=== PATIENT | female | born 1960 | race Caucasian/White ===

== ENCOUNTER 2017-08-22 10:31 | Outpatient (AMBR) | payer MEDICAID, SELFPAY ==
--- NOTE | 2017-08-22 12:02 | PTNOTE_ITS ---
PT OP Progress/Discharge Note Date of Service: August 22, 2017 Progress Note/DC Note Progress Note/Discharge Note: Progress Note Patient Information Visit Reasons: RIGHT SHOULDER Medical Diagnosis: M75.10 Treatment Dx #1: Right Shoulder Mobility Deficits Treatment Dx #2: Right Shoulder Weakness Service Continue Service or Discharge: Continue Service Certification Date Certification Dates: 08/22/17 to 11/22/17 Status Subjective: Pt mention about 2 weeks ago she received a shoulder manipulation felt that it help a little. Pt has been able to drive, take off her bra, reach to side, and start light swimming. Pt still has difficulty with overhead motions , lifting, cooking, and cleaning. Objective: Right Shoulder AROM Flexion: 60 deg Abduction: 55 deg ER and IR: NT Right Shoulder PROM Flexion: 150 deg Abduction: 150 deg ER and IR: NT Right Shoulder MMTs: grossly 3-/5 where Assessment: Pt's right shoulder PROM has improved after the shoulder manipulation, however, Pt continues to demonstrate limited AROM due to rotator cuff weakness and pain. Due to Pt's limited shoulder mobility Pt continues to have difficulty with overhead motions, lifting, cooking, and cleaning. Pt has not met set goals yet and will continue to benefit from additional physical therapy, thank you for your referrals. Plan: Continue with POC/PT and add 12 sessions (2 x wk for 6 wks) Office Procedures PT Procedures PT Date of Service: 08/22/17 Therapeutic Exercise 30 minutes: Yes
== END 2017-09-16 23:59 | disposition home or self-care (01) ==
PROVIDERS: Visit Provider Orthopaedic Surgery
DX: M25.511 Pain in right shoulder (principal); M62.81 Muscle weakness (generalized)
CPT/HCPCS: 97110

== ENCOUNTER → 2024-02-07 | Outpatient (CLI) | payer MEDICAID, SELFPAY ==
--- NOTE | 2024-02-07 09:45 | XR_ITS ---
Examination: Screening digital mammography, bilateral Computer aided detection 3-D breast Tomosynthesis, bilateral Date and time of exam: February 07, 2024 0922 hours Compared to mammograms dating to September 19, 2019 Indication: Screening Technique: Nonmagnified MLO, CC views of the breasts to been obtained, reconstructed from 3-D Tomosynthesis images. R2 computer aided detection program utilized for evaluation of suspicious masses and/or abnormal calcifications. 3-D Tomosynthesis images obtained. Findings: Scattered areas of fibroglandular density. Benign calcifications. No interval suspicious masses Impression: BI-RADS category II: Benign Findings. Recommend 1 year follow-up mammogram.
== END | disposition home or self-care (01) ==
PROVIDERS: Referring Provider Nurse Practitioner Family; Visit Provider Nurse Practitioner Family
DX: Z12.31 Encounter for screening mammogram for malignant neoplasm of breast (principal); R92.323 Mammographic fibroglandular density, bilateral breasts; R92.1 Mammographic calcification found on diagnostic imaging of breast
CPT/HCPCS: 77063; 77067

== ENCOUNTER 2024-03-18 09:30 | Outpatient (RCR) | payer MEDICAID, SELFPAY ==
--- NOTE | 2024-03-04 09:42 | PT.OIERPT ---
PT OP Initial Eval Patient Information Outpatient Physical Therapy Treatment Date: 03/04/24 Visit Reasons: right hip bursitis Medical Diagnosis: Bilateral Trochanteric Bursitis Treatment Dx #1: Bilateral Hip Pain Start of Care: 03/04/24 Date of Onset: 6 months ago Smoking Status Smoking Status: Current every day smoker (yes) Cessation Counseling Provided: JIMMY was advised that quitting smoking is the single most important factor to protect the health of themselves and their family. Discussed the benefits of quitting smoking with patient. Encouraged patient to quit smoking and provided Cessation assistance materials and resources. Tobacco Use: Cigarette Years smoked: 20 Are you interested in quitting?: No Would you like additional Smoking Cessation Counseling?: No Initial Assessment Subjective: Pt is a 63 y/o female reports of bilateral hip pain L>R started ~ 6 months ago. Pt mentioned the shots in her hips has been helping. Pt has limitation with standing, chores, self care, walking, stairs, and performing recreational activities. Objective: Hip AROM: all motions are WFL Hip MMTs: grossly 3+/5 Special Test (+) denise's Muscle Length: Hs tightness Palpation: TTP bilateral greater trochanter Assessment: Pt demonstrate bilateral hip pain L>R consistent with trochanter bursitis leading to difficulty with ADLs. Pt will benefit from physical therapy to increase mobility, strength, and flexibility. Short Term and Digital Media Buyer Goals 1) Increase hip AROM WNL in 6 wks to be able to perform chores 2) Decrease hip pain to 2/10 in 6 wks to be able to walk more than 30 mins 3) Increase hip MMTs grossly to 4-/5 in 6 wks to be able to perform recreational activities 4) Indep with HEP Treatment Plan 1) Manual Therapy 2) Therapeutic Activities 3) Therapeutic Exercises 4) Modalities (ice, heat) 5) Balance Training Frequency and Duration: 2 x wk for 6 wks Certification Dates: 03/04/24 to 06/02/24 Procedure Charges OP PT Eval Mod Complex 30 minutes: Yes
--- NOTE | 2024-03-06 10:01 | PT.ODAYNRPT ---
PT Outpatient Daily Note OP Daily Note Outpatient Physical Therapy Treatment Date: 03/06/24 Visit Reasons: right hip bursitis Subjective: No new complalints. Objective: Please see flow sheet for ther ex list. Assessment: Interventions completed with minimal pain and muscle fatigue. Plan: Continue with pOC. Length of Time (minutes) of Treatment: 30 Minutes Procedure Charges Therapeutic Exercise 30 minutes: Yes
--- NOTE | 2024-03-18 08:58 | PT.ODAYNRPT ---
PT Outpatient Daily Note OP Daily Note Outpatient Physical Therapy Treatment Date: 03/18/24 Visit Reasons: right hip bursitis Subjective: Pt's hips are okay. No new concerns to report. Objective: Please see flow chart for list of ther ex performed Assessment: tolerate exercises with minimal pain Plan: Continue with PT Length of Time (minutes) of Treatment: 30 Minutes Procedure Charges Therapeutic Exercise 30 minutes: Yes
== END 2024-03-19 23:59 | disposition home or self-care (01) ==
LOC: CPTX 09:30
PROVIDERS: PCP Orthopaedic Surgery Adult Reconstructive Orthopaedic Surgery; Referring Provider Orthopaedic Surgery Adult Reconstructive Orthopaedic Surgery; Visit Provider Orthopaedic Surgery Adult Reconstructive Orthopaedic Surgery
DX: M25.552 Pain in left hip (principal); M25.551 Pain in right hip; R26.2 Difficulty in walking, not elsewhere classified
CPT/HCPCS: 97110; 97162

== ENCOUNTER 2024-03-26 09:00 | Outpatient (RCR) | payer MEDICAID, SELFPAY ==
--- NOTE | 2024-03-22 09:19 | PT.ODAYNRPT ---
PT Outpatient Daily Note OP Daily Note Outpatient Physical Therapy Treatment Date: 03/22/24 Visit Reasons: Left hip pain Subjective: Pt's hips are better. Pt wants to continue physical therapy and extend authorization Objective: Please see flow chart for list of ther ex performed Assessment: progress patient to more closed chain exercises with good tolerance and less pain reported Plan: Continue with PT Length of Time (minutes) of Treatment: 30 Minutes Procedure Charges Therapeutic Exercise 30 minutes: Yes
--- NOTE | 2024-03-26 10:52 | PTNOTE_ITS ---
PT OP Progress/Discharge Note Date of Service: 03/26/24 Progress Note/DC Note Progress Note/Discharge Note: DC Note Patient Information Visit Reasons: Left hip pain Medical Diagnosis: Bilateral Trochanteric Bursitis Treatment Dx #1: Bilateral Hip Pain Service Discharge Date: 03/26/24 Status Subjective: Pt's hips are good and has been able to resume ADLs, ambulate, and perform recreational activities with minimal limitation. At this time Pt feels comfortable being release from care with exercises to continue at home. Objective: Hip AROM: all motions are WNL Hip MMTs: grossly 4-/5 Muscle Length: normal Hs length Assessment: Pt demonstrate functional hip mobility and strength allowing her to resume ADLs, ambulate, and perform recreational activities with minimal limitation. Pt has met set goals in therapy and will no longer benefit from physical therapy. Pt was instructed on HEP last session and educated to continue exercises to ma intain overall mobility. Pt performed all exercises safely, thank you for your referrals. Plan: D/C home with HEP and follow up with MD QUEZADA Procedure Charges Therapeutic Exercise 30 minutes: Yes
== END 2024-04-19 23:59 | disposition home or self-care (01) ==
LOC: CPTX 09:00
PROVIDERS: PCP Orthopaedic Surgery Adult Reconstructive Orthopaedic Surgery; Referring Provider Orthopaedic Surgery Adult Reconstructive Orthopaedic Surgery; Visit Provider Orthopaedic Surgery Adult Reconstructive Orthopaedic Surgery
DX: M25.552 Pain in left hip (principal); M25.551 Pain in right hip; R26.2 Difficulty in walking, not elsewhere classified
CPT/HCPCS: 97110

== ENCOUNTER 2024-03-26 15:13 | Emergency (ER) | payer MEDICAID, SELFPAY ==
[2024-03-26 15:24] VITALS: BP 162/96; PULSE 98; RESP 18; TEMP 36.5; O2SAT 96; BMI 32.4
--- NOTE | 2024-03-26 15:27 | XR_ITS ---
Examination: CT abdomen and pelvis without contrast. Coronal 3-D reconstructions. Sagittal 2-D reconstructions. Date and time of exam:March 26, 2024 1623 hours Comparison January 11, 2023 INDICATIONS: Abdominal pain flank pain today, history right renal calculi on CT stone study January 11, 2023 CTDI: vol (mGy): 12.6 DLP: (mGycm): 6 Technique: Axial images of the abdomen have been obtained, 3 mm slice thickness Intravenous contrast material has not been administered. Low dose protocols were performed. One or more of the following dose reduction techniques were used; automated exposure control, adjustment of the mA and/or KV according to patient size, use of iterative reconstruction technique. Findings: 2 mm pulmonary nodule left lower lobe 10 mm pulmonary nodule with central calcification left lower lobe Mild enlargement cardiac contour 4 mm medial right lobe liver cyst Absent gallbladder Spleen not enlarged No pancreatic or adrenal mass 4 mm lower pole right renal calculus Mild right hydronephrosis secondary to 6 mm distal right ureteral calculus image 219 Abdominal aortic calcification Normal appendix Colonic diverticulosis, no diverticulitis Contracted urinary bladder Advanced degenerative disc disease L4-L5, L5-S1 IMPRESSION: Pulmonary nodules as above, recommend PA lateral chest follow-up Mild right hydronephrosis secondary to 6 mm distal right ureteral calculus
--- NOTE | 2024-03-26 15:27 | PD.EDRME ---
Rapid Medical Screening Exam FORMERLY [facility], [facility] Arrival date/time: 03/26/24 15:13 63-year-old female with a history of kidney stones presents to the emergency room with a chief complaint of right-sided flank pain. Patient states she was sent to the emergency room by her urologist when she spoke to him over the phone. Patient states her pain is a 7 out of 10 and radiates to her groin. Patient is also complaining of dysuria. I have greeted and performed a focused initial assessment of this patient. A comprehensive ED assessment and evaluation of the patient, analysis of all test results, and completion of the medical decision making process will be conducted by additional ED providers. Chief Complaint: Abdominal Pain Time Seen by Provider: 03/26/24 15:17 Vital signs: Vital Signs Temperature 97.7 F 03/26/24 15:24 Pulse Rate 98 03/26/24 15:24 Respiratory Rate 18 03/26/24 15:24 Blood Pressure 162/96 H 03/26/24 15:24 Pulse Oximetry (%) 96 03/26/24 15:24 Oxygen Delivery Method Room Air 03/26/24 15:24 Vital signs reviewed by provider: Yes
[2024-03-26] MEDS: KETOROLAC INJ 60 MG/2 ML VIAL 30 MG IM (15:35)
[2024-03-26 16:07] LABS: Collection Type, Urine Clean Catch
[2024-03-26 16:14] LABS: Bacteria,Urine Rare; Bilirubin,Urine Negative (Negative); Blood,Urine Negative (Negative); Clarity,Urine Clear (Clear/Hazy); Color,Urine Colorless (Lt Yel-Yel); Glucose, Urine Negative (Negative); Ketones,Urine Negative (Negative); Leukocyte Esterase,Urine Positive (Negative); Nitrite,Urine Negative (Negative); PH,Urine 6.5 (5.0-7.0); Protein,Urine Negative (Neg - Trace); RBC,Urine 2 /hpf (0-3); Specific Gravity,Urine 1.007 (1.001-1.035); Squamous Epithelial Cell,Urine < 1 /hpf (0-5); Urobilinogen,Urine Negative mg/dL (0.0-1.0); WBC,Urine 3 /hpf (0-5)
[2024-03-26 16:21] LABS: Basophils % (Auto) 0 % (0-2.5); Eosinophils # (Auto) 0.4 Thou/mm3 (0.0-0.5); Eosinophils % (Auto) 4 % (0-10); Hematocrit 46.1 % (36.0-46.0); Hemoglobin 15.9 g/dL (12.0-16.0); Immature Granulocytes % (Auto) 0 % (0-0); Immature Granulocytes Auto 0.02 Thou/mm3 (0.00-0.00); Lymphocytes # (Auto) 2.6 Thou/mm3 (1.0-4.8); Lymphocytes % (Auto) 25 % (10-50); Mean Corpuscular HGB Conc 34.5 g/dl (31.0-37.0); Mean Corpuscular Hemoglobin 29.1 pg (25.0-35.0); Mean Corpuscular Volume 84 fL (80-100); Monocytes # (Auto) 0.8 Thou/mm3 (0.0-0.8); Monocytes % (Auto) 8 % (0-12); Neutrophils # (Auto) 6.5 Thou/mm3 (1.8-7.7); Neutrophils % (Auto) 63 % (37-80); Nucleated Red Blood Cell % 0 /100 WBC (0); Platelet Count 248 Thou/mm3 (140-440); RDW Standard Deviation 36.3 fL (36.4-46.3); Red Blood Count 5.46 Miln/mm3 (4.00-5.20); White Blood Count 10.3 Thou/mm3 (3.6-11.0)
[2024-03-26 16:40] LABS: Alanine Aminotransferase 10 U/L (10-49); Albumin, Serum 4.6 gm/dL (3.4-4.8); Alkaline Phosphatase 98 U/L (46-116); Anion Gap 6 (7-16); Aspartate Amino Transferase 14 U/L (0-34); BUN/Creatinine Ratio 17 Ratio (12-20); Bilirubin,Total 0.6 mg/dL (0.3-1.2); Blood Urea Nitrogen 12 mg/dL (9-23); Calcium 10.2 mg/dL (8.3-10.6); Calcium (Corrected) 10.2 mg/dL (8.5-10.1); Carbon Dioxide 27.9 mMol/L (20.0-31.0); Chloride 104 mMol/L (98-107); Creatinine (Component) 0.7 mg/dL (0.6-1.3); Estimated Creatinine Clearance 92.3 mL/min (>60); Globulin 2.3 gm/dL (2.3-3.5); Glucose 100 mg/dL (74-106); Lipase 40 U/L (12-53); Osmolality,Calculated 275 (275-295); Sodium 138 mMol/L (136-145); Total Protein 6.9 gm/dL (5.7-8.2); eGFR > 60 See Note
[2024-03-26 17:58] VITALS: BP 156/106; PULSE 88; RESP 16; TEMP 36.8; O2SAT 96
--- NOTE | 2024-03-26 18:04 | EDNOTE_ITS ---
ED General RME/HPI General Chief complaint: Abdominal Pain Stated complaint: Mihir. flank pain, difficulty urinating Time Seen by Provider: 03/26/24 15:17 Arrival date/time: 03/26/24 15:13 CC: Right flank pain HPI onset for the past 2 days has a long history of kidney stones mild nausea no vomiting. Denies any fever chills shortness of breath or difficulty breathing. Patient is awake alert oriented with pain is 7 out of 10 scale. RME / HPI RME / HPI narrative: 03/26/24 15:13 63-year-old female with a history of kidney stones presents to the emergency room with a chief complaint of right-sided flank pain. Patient states she was sent to the emergency room by her urologist when she spoke to him over the phone. Patient states her pain is a 7 out of 10 and radiates to her groin. Patient is also complaining of dysuria. I have greeted and performed a focused initial assessment of this patient. A comprehensive ED assessment and evaluation of the patient, analysis of all test results, and completion of the medical decision making process will be conducted by additional ED providers. Related Data Home Medications ?Medication ?Instructions ?Recorded ?Confirmed losartan 50 mg tablet 50 mg PO QDAY 08/24/21 01/02/24 semaglutide 3 mg tablet (Rybelsus) 3 mg PO QDAY 08/24/21 01/02/24 potassium citrate 10 mEq (1,080 2,160 mg PO QDAY 01/23/23 01/02/24 mg) tablet,extended release sertraline 50 mg tablet 50 mg PO QDAY 01/23/23 01/02/24 Previous Rx's ?Medication ?Instructions ?Recorded naproxen 500 mg tablet 500 mg PO bid #60 tabs 09/15/23 ketorolac 10 mg tablet 10 mg PO Q8H #14 tabs 03/26/24 ondansetron 4 mg disintegrating 4 mg PO Q8H #14 tabs 03/26/24 tablet Allergies Allergy/AdvReac Type Severity Reaction Status Date / Time No Known Allergies Allergy Verified 03/26/24 15:15 Review of Systems Review of Systems Narrative Review of Systems: GEN: No fever, no chills, no weight loss EYES: No discharge, no visual changes, no pain HEENT: No ear pain, no congestion, no sore throat PULM: No shortness of breath, no cough, no congestion CV: No chest pain, no dyspnea on exertion, no palpitations GI: No nausea, no vomiting, no diarrhea, no pain, no constipation : No frequency, no urgency, no dysuria MUSC/SKEL: No joint pain, + flank pain SKIN: No rash PSYCH: No hallucinations, no depression HEME/LYMPH: No easy bleeding or bruising tendencies NEURO: No weakness, no headache Past Medical History Past Medical History NEUROLOGIC: Negative Neurological Disorders or Seizures CARDIAC: Positive Cardiac Disorders, Hypercholesterolemia and Hypertension; Negative Congestive Heart Failure RESPIRATORY: Positive Smoking, Smoking Cessation Counseling and Smoking Exposure; Negative Chronic Obstructive Pulmonary Disease (COPD) or Tobacco Use GASTROINTESTINAL: Positive Gastrointestinal Disorders, Gall Bladder Disease and Obesity; Negative Hepatitis or Colorectal Cancer GENITOURINARY: Positive Genitourinary Disorders and Kidney Stones; Negative Renal Disease or Prostate Cancer REPRODUCTIVE: Positive Previous Pregnancies; Negative Breast Cancer, Pelvic Inflammatory Disease or Testicular Cancer MUSCULOSKELETAL: Negative Musculoskeletal Disorders or Bone Cancer ENT: Negative Cataracts, Glaucoma, Blind, Retinal Detachment, Macular Degeneration, Ear Infection, Deafness or Eye Prosthesis ENDOCRINE: Positive Endocrine Disorders and Diabetes Mellitus Type 2; Negative Diabetes Mellitus Type 1 HEMATOLOGIC: Negative Blood Disorders, Anemia, Leukemia, Hemophilia, Thalassemia, Sickle Cell Disease or Clotting Problems OTHER HISTORY: Positive Hospitalization, Falls, Chicken Pox, Measles, Mumps and Clostridium Difficile; Negative Autoimmune Disease, Down Syndrome, Developmental Delay, Shingles, Blood Transfusions, Anesthesia Reactions, Organ Transplant, Chemotherapy, Radiation Therapy, Hyperbaric Therapy, MRSA, VRSA, Vancomycin-Resistant Enterococci, Human Immunodeficiency Virus (HIV), Rubella ([place]iber[place] Measles), Pertussis, Cancer, Breast Cancer, Cervical Cancer, Colorectal Cancer, Lung Cancer, Ovarian Cancer, Prostate Cancer or Testicular Cancer Family History FAMILY HISTORY: Positive Family Cardiac Disorders and Family Cancer; Negative Family Psychiatric Problems, Family Respiratory Disorders, Family Gastrointestinal Problems, Family Surgery or Family Anesthesia Reaction Surgical History SURGICAL: Positive Arthroscopy, Hysterectomy, Tubal Ligation and Section; Negative Cardiac Surgery or Organ Transplant Social History SMOKING STATUS: Current every day smoker SUBSTANCE USE: does not use ED Exam Narrative Physical exam: [General: Obese in mild discomfort not in any acute distress Head normocephalic HEENT: Within acceptable limits Neck is supple nontender Chest equal chest rise nontender to palpation Respiratory: Clear to auscultation no wheezes crackles or rubs CV: Rate rhythm is regular no murmurs rubs or clicks Abdomen is grossly distended secondary to body habitus soft nontender no masses positive bowel sounds all 4 quadrants Back: Right CVA tenderness no left CVA tenderness, no spinous process tenderness from cervical spine thoracic and lumbar spine Skin: Intact no petechiae rash induration ulceration or crepitus Extremities: Moving all extremity against resistance cap refill less than 2 seconds neurosensory intact Neuro: Awake alert oriented x3 Glascow coma 15 no focal deficits] Course Quality Measures none Orders Category Date Time Status CT abdomen pelvis wo con Stat Exams 03/26/24 15:27 Completed CBC Stat Lab 03/26/24 16:09 Completed CMP [Comprehensive Metabolic Panel] Stat Lab 03/26/24 16:09 Completed Lipase Stat Lab 03/26/24 16:09 Completed UA [Urinalysis] Stat Lab 03/26/24 16:00 Completed Urine Culture Stat Lab 03/26/24 16:00 Received Ketorolac Inj [Toradol Inj] Med 03/26/24 15:27 Discontinued 30 mg IM X1 ONE Vital Signs Vital signs: Vital Signs Temperature 97.7 F 03/26/24 15:24 Pulse Rate 98 03/26/24 15:24 Respiratory Rate 18 03/26/24 15:24 Blood Pressure 162/96 H 03/26/24 15:24 Pulse Oximetry (%) 96 03/26/24 15:24 Oxygen Delivery Method Room Air 03/26/24 15:24 [facility] Patient data External records reviewed:: [facility] previous records Clinical information provided by:: patient Social determinants that could affect healthcare access:: none Patient has the following chronic illnesses:: Kidney stones How is presenting disease/condition affected by chronic disease/condition?: e xacerbated by Evaluation data The following diagnostics were reviewed and interpreted by me:: lab results and radiology exam(s) Lab and/or radiology exams considered but not ordered:: CBC shows no acute leukocytosis anemia thrombocytopenia CMP shows no acute electrolyte imbalances renal impairment transaminitis or T. bili elevation Urine is negative for UTI CT shows the patient has 6 mm stone in the distal right ureter with mild hydro-. Interpretation Summary: Patient wants to go home with medications and attempt in the next 48 hours to see if she can pass the stone as it is 6 mm. Patient also was connected with Dr. Jordan wash his office and can follow-up there if she needs to. Medications Medications considered but not ordered:: None Medication administrations:: Medication Administration History Discontinued Medications Ketorolac Tromethamine (Ketorolac Inj 60 Mg/2 Ml Vial) 30 mg IM X1 ONE Stop: 03/26/24 15:28 Last Admin: 03/26/24 15:35 Dose: 30 mg Documented By: JAN None Consultations Consultation(s) initiated? (list below): No Diagnosis Differential Diagnosis ED Complaint MDM: Urolithiasis hydroureter hydronephrosis Most likely diagnosis given after review of the tests above:: Urolithiasis flank pain Admission Indicated Admission indicated?: not indicated Explain why admission is indicated or not indicated:: Stable for outpatient follow-up Admission Request Was there a request for admission?: No Disposition Plan Disposition Plan: Discharge Discharge Attestation Discharge Attestation: The patient and all family members were given an opportunity to ask questions and understood the discharge instructions. Discharge instructions specifically effects, indications for sooner follow up or return to the emergency department, and the expected course of current diagnosis. Patient condition: Stable Medical Decision Making Differential Diagnosis Differential Diagnosis: Urolithiasis hydroureter hydronephrosis Lab Data 03/26/24 16:09 03/26/24 16:09 Labs: Lab Results 03/26/24 03/26/24 Range/Units 16:00 16:09 WBC 10.3 (3.6-11.0) Thou/mm3 RBC 5.46 H (4.00-5.20) Miln/mm3 Hgb 15.9 (12.0-16.0) g/dL Hct 46.1 H (36.0-46.0) % MCV 84 (80-100) fL MCH 29.1 (25.0-35.0) pg MCHC 34.5 (31.0-37.0) g/dl RDW Std Deviation 36.3 L (36.4-46.3) fL Plt Count 248 (140-440) Thou/mm3 Neut % (Auto) 63 (37-80) % Lymph % (Auto) 25 (10-50) % [place] % (Auto) 8 (0-12) % Eos % (Auto) 4 (0-10) % Baso % (Auto) 0 (0-2.5) % Neut # (Auto) 6.5 (1.8-7.7) Thou/mm3 Lymph # (Auto) 2.6 (1.0-4.8) Thou/mm3 [place] # (Auto) 0.8 (0.0-0.8) Thou/mm3 Eos # (Auto) 0.4 (0.0-0.5) Thou/mm3 Baso # (Auto) 0.0 (0.0-0.2) Thou/mm3 Immature Gran # (Auto) 0.02 H (0.00-0.00) Thou/mm3 Absolute Nucleated RBC 0.00 (0.00-0.00) Thou/mm3 Immature Gran % 0 (0-0) % Nucleated RBC % 0 (0) /100 WBC Sodium 138 (136-145) mMol/L Potassium 4.0 (3.4-5.1) mMol/L Chloride 104 (98-107) mMol/L Carbon Dioxide 27.9 (20.0-31.0) mMol/L Anion Gap 6 L (7-16) BUN 12 (9-23) mg/dL Creatinine 0.7 (0.6-1.3) mg/dL Estim Creat Clear Calc 92.3 (>60) mL/min eGFR > 60 (60 - ) See Note BUN/Creatinine Ratio 17 (12-20) Ratio Glucose 100 (74-106) mg/dL Calculated Osmolality 275 (275-295) Calcium 10.2 (8.3-10.6) mg/dL Corrected Calcium 10.2 H (8.5-10.1) mg/dL Total Bilirubin 0.6 (0.3-1.2) mg/dL AST 14 (0-34) U/L ALT 10 (10-49) U/L Alkaline Phosphatase 98 (46-116) U/L Total Protein 6.9 (5.7-8.2) gm/dL Albumin 4.6 (3.4-4.8) gm/dL Globulin 2.3 (2.3-3.5) gm/dL Albumin/Globulin Ratio 2.0 (1.2-2.2) Lipase 40 (12-53) U/L Ur Collection Type Clean Catch Urine Color Colorless A (Lt Yel-Yel) Urine Clarity Clear (Clear/Hazy) Urine pH 6.5 (5.0-7.0) Ur Specific [place] 1.007 (1.001-1.035) Urine Protein Negative (Neg - Trace) Urine Glucose (UA) Negative (Negative) Urine Ketones Negative (Negative) Urine Blood Negative (Negative) Urine Nitrite Negative (Negative) Urine Bilirubin Negative (Negative) Urine Urobilinogen (Auto) Negative (0.0-1.0) mg/dL Ur Leukocyte Esterase Positive (Negative) Urine RBC 2 (0-3) /hpf Urine WBC 3 (0-5) /hpf Ur Squamous Epith Cells < 1 (0-5) /hpf Urine Bacteria Rare (None) Discharge Plan Plan Patient Disposition: HOME (Self Care) Prescriptions/Referrals Prescriptions/Med Rec: New ketorolac 10 mg tablet 10 mg PO Q8H Qty: 14 0RF Rx Instructions: maximum total duration of 5 days from all oral, intranasal, or parenteral formulations ondansetron 4 mg tablet,disintegrating 4 mg PO Q8H Qty: 14 0RF No Action sertraline 50 mg tablet 50 mg PO QDAY potassium citrate 10 mEq (1,080 mg) tablet extended release 2,160 mg PO QDAY losartan 50 mg tablet 50 mg PO QDAY Rybelsus 3 mg tablet 3 mg PO QDAY naproxen 500 mg tablet 500 mg PO bid Qty: 60 3RF Referrals: Sheryl Clay FNP [Primary Care Provider] - In 1 week Sami Pack MD [Physician] - In 1 week Problem List Clinical Impression: Urolithiasis, Hydroureter, Rt flank pain Patient/Caregiver Discharge Instructions Other Activity Instructions:: Follow-up take medications as needed if there is worsening symptoms spite of his medications return the emergency room medially for further evaluation. Education Materials: ED Kidney Stone Undescended No ... Print Language: Senegalese Stand Alone Forms: Shakila Award Info., Patient Portal Info Letter, Work/School Release PA/DIRECTOR NICU Supervising Physician ORION/DIRECTOR NICU Supervising Physician: Lexx Bonilla ENP
== END 2024-03-26 18:18 | disposition home or self-care (01) ==
PROVIDERS: Nurse Practitioner Family; Emergency Provider Emergency Medicine; PCP Nurse Practitioner Family
DX: N13.2 Hydronephrosis with renal and ureteral calculous obstruction (principal); N13.4 Hydroureter
CPT/HCPCS: 36415; 74176; 80053; 81001; 83690; 85025; 87086; 96372; 99284; J1885

== ENCOUNTER → 2024-04-02 | Outpatient (CLI) | payer MEDICAID, SELFPAY ==
--- NOTE | 2024-04-02 16:00 | XR_ITS ---
Examination: Ultrasound soft tissue extremity left foot TECHNIQUE: Grayscale sonographic images soft tissue left foot Exam date and time: April 02, 2024 1512 hours INDICATIONS: Left foot swelling intermittent beginning 3 weeks ago FINDINGS: Prominent extensor musculature left foot No cystic or solid mass IMPRESSION: Prominent extensor musculature left foot, consider MRI foot without contrast follow-up
== END | disposition home or self-care (01) ==
PROVIDERS: PCP Nurse Practitioner Family; Referring Provider Nurse Practitioner Family; Visit Provider Nurse Practitioner Family
DX: M79.672 Pain in left foot (principal)
CPT/HCPCS: 76882

== ENCOUNTER → 2024-04-04 | Outpatient (BNVA) | payer MEDICAID, SELFPAY | END | disposition home or self-care (01) | PROVIDERS: PCP Nurse Practitioner Family; Referring Provider Nurse Practitioner Family; Visit Provider Urology | DX: N13.2 Hydronephrosis with renal and ureteral calculous obstruction (principal); E11.9 Type 2 diabetes mellitus without complications; I10 Essential (primary) hypertension | CPT/HCPCS: 81003; 99212; G0463 ==

== ENCOUNTER → 2024-04-12 | Outpatient (CLI) | payer MEDICAID, SELFPAY ==
--- NOTE | 2024-04-12 09:50 | XR_ITS ---
Examination: PA lateral chest 2 views TECHNIQUE: Upright PA lateral chest 2 views Exam date and time: April 12, 2024 1004 hours INDICATIONS: Pulmonary nodules in the lower lung zones on CT abdomen study March 26, 2024 FINDINGS: Moderate hyperexpansion Mild prominence left ventricle Ectatic thoracic aorta No pneumonia. No current pulmonary nodules visualized IMPRESSION: No current pulmonary nodules visualized Consider CT chest without intravenous contrast follow-up
== END | disposition home or self-care (01) ==
PROVIDERS: PCP Nurse Practitioner Family
DX: R91.1 Solitary pulmonary nodule (principal)
CPT/HCPCS: 71046

== ENCOUNTER 2024-04-24 07:15 | Day surgery (SDC) | payer MEDICAID, SELFPAY ==
--- NOTE | 2024-04-23 08:05 | EKG_ITS ---
[facility] Test Date: 2024-04-23 Pat Name: JIMMY ALFORD Department: Room: - Gender: Female [employer] Commissioner: J CARLOS : 1960 Requested By: Kiran Britt Order Number: [id number] Reading MD: Kiran Britt Measurements Intervals [place] Rate: 108 P: [place]: QRS: -25 QRSD: 93 T: 7 QT: 363 QTc: 487 Interpretive Statements ATRIAL FIBRILLATION WITH RAPID VENTRICULAR RESPONSE WITH ABERRANT CONDUCTION OR VENTRICULAR PREMATURE COMPLEXES INFERIOR MYOCARDIAL INFARCTION , PROBABLY OLD Compared to ECG 08/09/2021 09:05:32 Ventricular premature complex(es) now present Aberrant conduction of supraventricular beat(s) now present Myocardial infarct finding now present Sinus rhythm no longer present T-wave abnormality no longer present /store/S0/[id number]/ecg/[id number].pdf
[2024-04-23 09:13] VITALS: BMI 33.7
[2024-04-23 11:37] LABS: Alanine Aminotransferase 14 U/L (10-49); Albumin, Serum 4.5 gm/dL (3.4-4.8); Albumin/Globulin Ratio 1.7 (1.2-2.2); Alkaline Phosphatase 101 U/L (46-116); Anion Gap 6 (7-16); Aspartate Amino Transferase 16 U/L (0-34); BUN/Creatinine Ratio 20 Ratio (12-20); Blood Urea Nitrogen 14 mg/dL (9-23); Calcium 10.2 mg/dL (8.3-10.6); Calcium (Corrected) 10.2 mg/dL (8.5-10.1); Carbon Dioxide 27.8 mMol/L (20.0-31.0); Chloride 108 mMol/L (98-107); Creatinine (Component) 0.7 mg/dL (0.6-1.3); Globulin 2.6 gm/dL (2.3-3.5); Glucose 146 mg/dL (74-106); Osmolality,Calculated 286 (275-295); Potassium 4.4 mMol/L (3.4-5.1); Sodium 142 mMol/L (136-145); Total Protein 7.1 gm/dL (5.7-8.2); eGFR > 60 See Note
--- NOTE | 2024-04-23 15:41 | SUR.PREOP ---
EKG Afib, pt stated she was not aware of this rythm and she has never seen a installation drafter, Dr Britt and Dr Pack notified and Dr Pack stated pt really needs the procedure so he will check with Pt tomorrow before the procedure, so ok to proceed.
--- NOTE | 2024-04-23 15:45 | SUR.PREOP ---
Pt notified to come in at 0800 tomorrow for procedure and Dr Pack will assess heart rythm on arrival.
--- NOTE | 2024-04-23 15:50 | SUR.PREOP ---
Pt notified to come in at 0800 tomorrow.
[2024-04-24] VITALS (9 sets, daily range): BP systolic 111–160; BP diastolic 72–96; PULSE 86–99; RESP 13–20; TEMP 36.1–36.9; O2SAT 94–99; BMI 33.5
[2024-04-24] MEDS: VANCOMYCIN/NS 1 GM IVPB 200 ML IV (08:11)
--- NOTE | 2024-04-24 08:40 | CHAP ---
Visited briefly with patient and had prayer.
--- NOTE | 2024-04-24 10:06 | XR_ITS ---
Examination: Right retrograde pyelogram with without KUB 2. Spot abdomen films Fluoroscopy Exam date and time: April 24 2024 1230 hours INDICATIONS: Abdominal pain right flank pain, mild right hydronephrosis 6 mm distal right ureteral calculus on CT stone study March 26, 2024 Technique and findings: 2 spot fluoroscopic films of the abdomen Minimal opacification right renal calyces Right ureteral stent satisfactory position Fluoroscopy 25 seconds radiation dose 5.95 milligray IMPRESSION: Right retrograde pyelogram as above
--- NOTE | 2024-04-24 11:38 | ESOP_ITS ---
Date of Procedure 04/24/24 Pre Op Diagnosis 6 to 8 mm stone right distal ureter, right hydronephrosis, right flank pain Post Op Diagnosis Same Procedure Cystoscopic examination, placement of safety wire right, retrograde pyelogram under fluoroscopic examination, right semirigid ureteroscopy laser stone fragmentation and evaporation, stone basketing and placement of the right ureteral stent 24 cm long 6 [place] double-J under fluoroscopic examination in a retrograde fashion Findings Obstructive stone right distal ureter Procedure Description This is a 63-year-old female she is seen in urology office she had a right flank pain she had a CAT scan with stone protocol was found to have a 6 to 8 mm stone right distal ureter with right hydronephrosis. Conservative treatment had failed she was recommended above procedure procedure and complications were discussed with patient in great detail informed consent is obtained Patient was brought to the operating room in a satisfactory condition after appropriate premedication was put on the operating table in a spine position she was appropriately identified by surgeon and operating room staff. Site scope and indications of the procedure were reconfirmed with the patient. Next general anesthesia was administered uneventfully patient was positioned in a dorsal lithotomy position parts were prepped and draped in the usual sterile fashion. 21 cystoscope was used to do the cystourethroscopy examination of urethra was unremarkable examination of bladder in all the quadrant was carried out there was no tumor stone or diverticuli identified both ureteral orifices were identified right ureteral orifice was not effluxing clear urine the urine was coming out of the left ureteral orifice. At this time patient received perioperative antibiotics. 20 mg of Lasix IV was given for diuresis as well as for prevention of pyelocalyceal infectious complication next I passed the open-ended Pollick catheter into the right ureteral orifice. Retrograde pyelogram was performed there was obstructive stone right distal ureter next through the open-ended Pollick catheter I was able to pass a safety wire into the upper pole calyx. Cystoscope was withdrawn gently semirigid ureteroscope was inserted into the bladder per urethra and into the right ureteral orifice up to the stone. The stone has multiple spicules. Video was obtained next I took 220 ?m laser fiber and with the laser stone was fragmented into multiple small fragments. Next with the stone basketing x 20 I remove the stone fragment. Retrograde pyelogram was performed there was no injury to the ureter or collecting system identified. Next the ureteroscope was withdrawn gently over the safety wire under fluoroscopic examination I placed 24 cm long 6 [place] double-J stent proximal and curled in the upper pole calyx distal in the bladder. Bladder was emptied instrument was withdrawn gently patient after having tolerated the procedure well was sent to recovery room in a satisfactory condition she will be discharged home with the full postoperative instructions verbally as well as in writing to be followed in urology office for removal of the stent Patient disposition patient he is encouraged to drink plenty of fluids so that she has urinary output of 2400 cc in 24 hours, strain all the urine follow-up appointment in urology office for stent removal and a kidney ultrasound Anesthesia GETA Pathology / specimen Other (Ureteral stone) Estimated Blood Loss 0.5 Condition Stable Disposition PACU Surgeon Sonya Pack MD Surgical Staff Operation Date: 04/24/24 10:25 Case Staff Anesthesiologist: Kiran Britt
--- NOTE | 2024-04-24 12:34 | SUR.PHASEI ---
1140: Pt received in [facility] via gurney. Report from Eliceo MENJIVAR and Balwinder Arboleda. Pt groggy, but awake. Resp even, unlabored. VS stable. Pt had voided on self enroute to [facility]. Pt cleaned and clean bedding provided. Pt has no c/o pain, discomfort. 1150: Pt stated she needed to void again. [place] external catheter placed. 1210: Pt has been resting with no complaints voiced. VS stable. Resp even, unlabored.
--- NOTE | 2024-04-24 12:52 | SUR.PHASEII ---
1230: Pt more awake, alert. Resp even, unlabored. VS stable. Denies pain. Sitting up tolerating po fluids with no difficulty swallowing and no n/v.
--- NOTE | 2024-04-24 13:19 | SUR.PHASEII ---
1315: Pt fully awake, oriented x3. VS stable. Denies pain, nausea. Pt dressed. Assisted to restroom to void. Ambulation steady. Pt and grandson stated understanding of discharge instructions. Pt discharged from [facility] in stable condition.
--- NOTE | 2024-04-24 14:01 | PD.SUROPNT ---
Date of Procedure 04/24/24 Procedure Cystoscopic examination, placement of safety wire right, retrograde pyelogram under fluoroscopic examination, right semirigid ureteroscopy laser stone fragmentation and evaporation, stone basketing and placement of the right ureteral stent 24 cm long 6 [place]ri[place] double-J under fluoroscopic examination in a retrograde fashion Surgeon Sonya Pack MD Surgical Staff Operation Date: 04/24/24 10:25 Case Staff Anesthesiologist: Kiran Britt
--- NOTE | 2024-04-25 13:24 | PD.ANESPROG ---
Documentation for date of: 04/25/24 POST ANESTHESIA NOTE: Patient had GETA for urologic procedure yesterday. Pre-op EKG showed A fib which she was unaware of and denied any sx. Risks/benefits were discussed with her, PCP/testboard operator follow up recommenced, and she agreed to proceed. I just called and spoke with her on the phone and she denied any problems from anesthesia. Kiran Britt MD Anesthesia Progress Note Progress Note Most recent Vital Signs: Last Vital Signs Temp 98.4 F 04/24/24 12:55 Pulse 94 04/24/24 12:55 Resp 20 04/24/24 12:55 BP 140/83 H 04/24/24 12:55 Pulse Ox 96 04/24/24 12:55 O2 Flow Rate 5 04/24/24 12:25
[2024-05-02 03:04] LABS: Stone Analysis Source KIDNEY
[2024-05-02 06:29] LABS: Stone Analysis Weight 0.011 g
== END 2024-04-24 13:15 | disposition home or self-care (01) ==
PROVIDERS: Anesthesiology; PCP Physician Assistant; Referring Provider Urology; Visit Provider Urology
PROC: 0TJB8ZZ Inspection of Bladder, Via Natural or Artificial Opening Endoscopic (ICD-10-PCS; CPT 52000; principal; 2024-04-24 10:25)
DX: N13.2 Hydronephrosis with renal and ureteral calculous obstruction (principal); Z01.810 Encounter for preprocedural cardiovascular examination; E11.9 Type 2 diabetes mellitus without complications; I10 Essential (primary) hypertension
CPT/HCPCS: 52356; 36415; 76000; 80053; 82365; 93005; A4217; A4649; C1769; C1889; C1894; C2617; J1100; J1580; J1940; J2405; J2704; J3010; J3370; J3490; J1805

== ENCOUNTER → 2024-05-03 | Outpatient (BNVA) | payer MEDICAID, SELFPAY | END | disposition home or self-care (01) | PROVIDERS: PCP Physician Assistant; Referring Provider Physician Assistant; Visit Provider Urology | DX: N20.1 Calculus of ureter (principal); Z96.0 Presence of urogenital implants; I10 Essential (primary) hypertension; E78.00 Pure hypercholesterolemia, unspecified; E11.9 Type 2 diabetes mellitus without complications | CPT/HCPCS: 52310; 96372; A4217; A4649; C1894; J1580; A9270 ==

== ENCOUNTER → 2024-06-03 | Outpatient (CLI) | payer MEDICAID, SELFPAY ==
--- NOTE | 2024-06-03 09:45 | XR_ITS ---
Examination: Retroperitoneal ultrasound, complete Technique: Multiple high resolution grayscale images of the retroperitoneum obtained, including kidneys and bladder. Exam date and time:June 03, 2024 0935 hours INDICATIONS: History kidney stones, flank pain months FINDINGS: Right kidney 9.9 cm cortex 1.3 cm Midpole cyst 11 mm, upper pole cyst 5 mm Left kidney 10.9 cm cortex 2.1 cm 10 mm lower pole cyst Moderate bilateral renal parenchymal scar formation No hydronephrosis Contracted urinary bladder IMPRESSION: Right renal cortical thinning Moderate bilateral renal pedicle scar formation No hydronephrosis or renal calculi
== END | disposition home or self-care (01) ==
LOC: CDIM 09:19
PROVIDERS: PCP Physician Assistant; Referring Provider Urology; Visit Provider Urology
DX: N28.89 Other specified disorders of kidney and ureter (principal)
CPT/HCPCS: 76770

== ENCOUNTER → 2024-06-18 | Outpatient (CLI) | payer MEDICAID, SELFPAY ==
--- NOTE | 2024-06-18 09:14 | XR_ITS ---
Examination: Thoracic spine 3 views TECHNIQUE: AP lateral coned lateral upper dorsal spine 3 views Exam date and time: June 18, 2024, 0947 hours INDICATIONS: Mid back pain one year FINDINGS: Prominent right paratracheal region Moderate osteopenia No acute thoracic fracture Moderate diffuse thoracic degenerative disc disease IMPRESSION: Moderate diffuse thoracic degenerative disc disease Recommend PA lateral chest follow-up to assess prominent high right paratracheal mediastinal region
== END | disposition home or self-care (01) ==
PROVIDERS: PCP Physician Assistant; Referring Provider Physician Assistant; Visit Provider Physician Assistant
DX: M51.34 Other intervertebral disc degeneration, thoracic region (principal)
CPT/HCPCS: 72072

== ENCOUNTER → 2024-08-30 | Outpatient (BNVA) | payer MEDICAID, SELFPAY | END | disposition home or self-care (01) | PROVIDERS: PCP Nurse Practitioner Family; Referring Provider Nurse Practitioner Family; Visit Provider Urology | DX: N13.2 Hydronephrosis with renal and ureteral calculous obstruction (principal); E11.9 Type 2 diabetes mellitus without complications; I10 Essential (primary) hypertension; I48.91 Unspecified atrial fibrillation; E66.9 Obesity, unspecified; Z68.34 Body mass index [BMI] 34.0-34.9, adult; F17.210 Nicotine dependence, cigarettes, uncomplicated; E78.00 Pure hypercholesterolemia, unspecified | CPT/HCPCS: 81003; 99212; G0463 ==

== ENCOUNTER → 2025-03-07 | Outpatient (BNVA) | payer MEDICARE, MEDICAID, SELFPAY | END | disposition home or self-care (01) | PROVIDERS: PCP Nurse Practitioner Family; Referring Provider Nurse Practitioner Family; Visit Provider Urology | DX: N20.1 Calculus of ureter (principal); E11.9 Type 2 diabetes mellitus without complications; I48.91 Unspecified atrial fibrillation; E66.9 Obesity, unspecified; Z68.36 Body mass index [BMI] 36.0-36.9, adult | CPT/HCPCS: 81003; 99212; G0463 ==